=== PATIENT | female | born 1985 | race Two or more races ===

== ENCOUNTER 2018-01-03 11:57 | Emergency (ER) | payer MEDICAID ==
[~2018-01-03] VITALS: Ht 160 cm; Wt 95.3 kg
--- NOTE | 2018-01-03 12:38 | Diagnostic Imaging Report ---
EXAM: XR Chest, 1 View CLINICAL HISTORY: Chest pain TECHNIQUE: Frontal view of the chest. COMPARISON: No relevant prior studies available. FINDINGS: Lungs: Unremarkable. The lungs appear clear. No confluent pulmonary opacities. Pleural space: Unremarkable. No pneumothorax. Heart: Unremarkable. No cardiomegaly. Mediastinum: Unremarkable. Bones/joints: Unremarkable. Tubes, lines and devices: EKG leads overlie the thorax. IMPRESSION: No acute findings.
[2018-01-03 13:08] LABS: ANION GAP 11 mmol/L (5-15); BLOOD UREA NITROGEN 9 mg/dL (7-18); CALCIUM 9.1 MG/DL (8.5-10.1); CARBON DIOXIDE 27 MMOL/L (21-32); CHLORIDE 102 MMOL/L (98-107); CREATININE 0.6 MG/DL (0.55-1.30); POTASSIUM 3.7 MMOL/L (3.5-5.1); SODIUM 140 MMOL/L (136-145)
--- NOTE | 2018-01-03 13:08 | Emergency Room Report ---
History of Present Illness General Chief Complaint: Chest Pain Source: Patient Present Illness HPI 32-year-old healthy female presents with right-sided chest pain and right-sided arm throbbing pain that occurred yesterday while at work she reports she's been under a lot of stress lately, she felt she is having palpitations well, she denies any recent weight loss, fevers chills, shortness of breath, syncope, injuries, leg pain, OCP use, she reports she has been having bitemporal headaches intermittently for the past few months as well, but no other symptoms at all. He works at an [employer] and they checked her blood pressure yesterday was elevated so she decided to come in for evaluation, she has no symptoms today at all, but she was unable to come in yesterday due to work and being busy. She reports she thinks her chest pain arm pain and headaches of been secondary to stress, and she has 0 symptoms currently. Allergies: Coded Allergies: No Known Allergies (Unverified , 01/03/18) Patient History Past Medical History: see triage record Reviewed Nursing Documentation: PMH: Agreed; PSxH: Agreed Nursing Documentation-PMH Past Medical History: No Stated History Review of Systems All Other Systems: negative except mentioned in HPI Physical Exam Vital Signs Date Time Temp Pulse Resp B/P (MAP) Pulse Ox O2 Delivery O2 Flow Rate FiO2 01/03/18 12:05 98.4 93 14 141/91 97 Room Air 98.4 Sp02 EP Interpretation: reviewed, normal General Appearance: no apparent distress, alert, non-toxic Head: normocephalic Eyes: bilateral eye normal inspection, bilateral eye PERRL, bilateral eye EOMI ENT: normal ENT inspection, hearing grossly normal, normal pharynx, no angioedema, normal voice, moist mucus membranes Neck: normal inspection, full range of motion, supple, supple/symm/no masses Respiratory: chest non-tender, lungs clear, normal breath sounds, chest symmetrical, palpation of chest normal Cardiovascular #1: normal peripheral pulses, regular rate, rhythm Cardiovascular #2: 2+ radial (R), 2+ radial (L) Gastrointestinal: normal inspection, non tender, soft, no mass, no guarding, no rebound Rectal: deferred Genitourinary: normal inspection, no CVA tenderness Musculoskeletal: back normal, gait/station normal, normal range of motion, non- tender, no calf tenderness, Silvia's Sign negative Neurologic: normal inspection, alert, oriented x3, responsive, ghost writer III-XII nml as tested, motor strength/tone normal, sensory intact, cerebellar normal, normal gait, speech normal Psychiatric: judgement/insight normal, memory normal, mood/affect normal, no suicidal/homicidal ideation Skin: normal color, no rash, warm/dry, normal turgor Lymphatic: no adenopathy Medical Decision Making Diagnostic Impression: Primary Impression: Chest pain Additional Impression: Tension type headache ER Course Patient extremely well-appearing, perk rule negative for PE, normal workup, normal cardiac and mediastinal silhouette, normal peripheral pulses, do not suspect dissection, do not suspect intracranial mass, nor PE, no acute coronary syndrome, will discharge with follow-up with PMD, for reevaluation. Patient with no goiter, do not suspect hyperthyroidism, she is normotensive currently will recommend follow-up with PMD. EKG Diagnostic Results EKG Time: 12:12 EP Interpretation: no st-t changes, no twi Rate: normal Rhythm: NSR ST Segments: no acute changes ASA given to the pt in ED: No Rhythm Strip Diag. Results Rhythm Strip Time: 13:08 EP Interpretation: yes Rate: 85 Rhythm: NSR, no PVC's, no ectopy Chest X-Ray Diagnostic Results Chest X-Ray Diagnostic Results : Chest X-Ray Ordered: Yes # of Views/Limited/Complete: 1 View Indication: Chest Pain EP Interpretation: Yes Interpretation: no consolidation, no effusion, no pneumothorax, no acute cardiopulmonary disease Impression: No acute disease Electronically Signed by: Violet Robles MD Last Vital Signs Date Time Temp Pulse Resp B/P (MAP) Pulse Ox O2 Delivery O2 Flow Rate FiO2 01/03/18 12:05 98.4 93 14 141/91 97 Room Air 98.4 Disposition: HOME, SELF-CARE Condition: Stable Referrals: [facility],REFERRING (PCP) VIOLET ROBLES M.D Jan 03, 2018 13:08
[2018-01-03] MEDS ORDERED: IBUPROFEN600 MG ORAL (13:09)
[2018-01-03 13:12] LABS: ALANINE AMINOTRANSFERASE 49 U/L (12-78); ALBUMIN 3.6 G/DL (3.4-5.0); ALBUMIN/GLOBULIN RATIO 0.7 (1.0-2.7); ALKALINE PHOSPHATASE 94 U/L (46-116); ASPARTATE AMINO TRANSFERASE 36 U/L (15-37); BILIRUBIN,TOTAL 0.4 MG/DL (0.2-1.0)
[2018-01-03 13:13] LABS: BASOPHILS % (AUTO) 0.9 % (0.0-2.0); EOSINOPHILS % (AUTO) 0.8 % (0.0-3.0); HEMATOCRIT 44.2 % (37.0-47.0); HEMOGLOBIN 14.3 G/DL (12.0-16.0); LYMPHOCYTES % (AUTO) 38.4 % (20.0-45.0); MEAN CORPUSCULAR VOLUME 84 FL (80-99); MONOCYTES % (AUTO) 3.3 % (1.0-10.0); NEUTROPHILS % (AUTO) 56.6 % (45.0-75.0); PLATELET COUNT 351 K/UL (150-450); RED BLOOD COUNT 5.28 M/UL (4.20-5.40); RED CELL DISTRIBUTION WIDTH 11.8 % (11.6-14.8); WHITE BLOOD COUNT 8.7 K/UL (4.8-10.8)
[2018-01-03 16:19] VITALS: BP 141/91
[2018-01-03 16:21] VITALS: BP 141/91
--- NOTE | 2018-01-09 00:57 | Cardiology Report ---
APPROVED REPORT EKG Measurement Heart [id number] Normal sinus rhythm Minimal voltage criteria for LVH, may be normal variant Borderline ECG
== END 2018-01-03 16:22 | disposition home or self-care (01) ==
LOC: EMR 12:34
DX: R07.9 Chest pain, unspecified (principal); G44.209 Tension-type headache, unspecified, not intractable
CPT/HCPCS: 36415; 71045; 80053; 84484; 85025; 93005; 96372; 99283

== ENCOUNTER 2018-03-16 12:09 | Emergency (ER) | payer MEDICAID ==
[~2018-03-16] VITALS: Ht 160 cm; Wt 99.8 kg
[~2018-03-16 12:09] MED LIST: IBUPROFEN600 MG ORAL
[2018-03-16 12:29] VITALS: BP 116/78
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
[2018-03-16] MEDS ORDERED: Ketorolac 30mg Inj IM ONE (13:00)
--- NOTE | 2018-03-16 13:16 | Diagnostic Imaging Report ---
Indication: Knee Pain 3 views of the left knee were obtained. Findings: No acute fracture, malalignment, or joint effusion are identified. Joint space is relatively well-maintained. Mild marginal spur formation noted. Impression: Negative for acute injury
[2018-03-16] MEDS ORDERED: IBUPROFEN600 MG ORAL (13:23)
[2018-03-16 13:27] VITALS: BP 123/89
== END 2018-03-16 13:27 | disposition home or self-care (01) ==
LOC: EMR 13:20
DX: S83.92XA Sprain of unspecified site of left knee, initial encounter (principal); X58.XXXA Exposure to other specified factors, initial encounter; Y92.9 Unspecified place or not applicable
CPT/HCPCS: 73562; 96372; 99283; J1885